=== PATIENT | female | born 2000 | race Two or more races ===

== ENCOUNTER 2022-12-16 13:05 | Emergency (ER) | payer OTHER ==
[~2022-12-16] VITALS: Ht 121.9 cm; Wt 56.2 kg
[2022-12-16] MEDS ORDERED: OMEGA 3 1,0001 EACH PO (13:37)
[2022-12-16] MEDS ORDERED: PRENATAL CAPLE1 EAC1 PO (13:37)
[2022-12-16] MEDS ORDERED: COENZYME Q10100 M2 PO (13:38)
== END 2022-12-16 18:14 | disposition home or self-care (01) ==
LOC: ER 13:05
PROVIDERS: General Practice
DX: N39.0 Urinary tract infection, site not specified (principal); Z88.6 Allergy status to analgesic agent
CPT/HCPCS: 36415; 96372; 99283; J0696